=== PATIENT | female | born 1990 | race Two or more races ===

== ENCOUNTER → 2016-09-12 | Outpatient (CLI) | payer BC ==
--- NOTE | 2016-09-12 10:52 | KCIC ---
PROCEDURE Pelvic sonogram. HISTORY Pelvic pain. TECHNIQUE Trans abdominal and transvaginal sonographic imaging of the pelvis was performed. COMPARISON None. FINDINGS The uterus measures 7.8 x 5.6 x 4.2 cm. The endometrium is somewhat heterogeneous and the endometrial stripe is thickened, measuring 1.7 cm. The right ovary is enlarged due to a large hemorrhagic cyst measuring 4.4 cm. The surrounding right ovarian parenchyma and cyst measure 5.1 x 4.8 x 4.1 cm. The left ovary measures 2.5 x 2.3 x 2.4 cm. There are small bilateral ovarian follicles. There is normal blood flow within both ovaries. There is a trace amount of right adnexal free fluid. IMPRESSION 1. 4.4 cm hemorrhagic right ovarian cyst. Followup can be performed to confirm resolution. 2. Heterogeneous thickened endometrial stripe, likely due to the phase of the patient's menstrual cycle. 3. Trace right adnexal free fluid. Electronically signed by: Leah Castillo (Sep 12, 2016 10:51:18)
== END | disposition home or self-care (01) ==
LOC: KCIC US 10:11
PROVIDERS: ATTEND Internal Medicine
DX: N83.201 Unspecified ovarian cyst, right side (principal)
CPT/HCPCS: 76830; 76856

== ENCOUNTER → 2016-10-05 | Outpatient (CLI) | payer BC ==
[~2016-10-05] MED LIST: CONTRAST GIVEN MC PRN; IOHEXOL 240 MG/ML 50ML VIAL. PO ONE; IOHEXOL 300 MG/ML 75 ML VIAL IV ONE
--- NOTE | 2016-10-05 11:56 | RAD ---
Indication right lower quadrant pain for several years. Axial images of the abdomen and pelvis were obtained. Both IV and oral contrast were administered. 75 cc of Omnipaque [address] imaging of the abdomen or pelvis is available. The lung bases are clear. The liver and spleen appear unremarkable. The gallbladder appears grossly normal. No pancreatic adrenal or renal anomalies are seen. No acute finding is apparent in the abdomen. In the pelvis no mass inflammatory process or significant finding is seen. IMPRESSION: No acute or significant finding seen in the abdomen or pelvis PQRS Compliance Statement: One or more of the following individualized dose reduction techniques were utilized for this examination: 1. Automated exposure control 2. Adjustment of the mA and/or kV according to patient size 3. Use of iterative reconstruction technique
== END | disposition home or self-care (01) ==
LOC: CT 09:33
PROVIDERS: ATTEND Internal Medicine
DX: R10.31 Right lower quadrant pain (principal)
CPT/HCPCS: 74177; Q9966; Q9967